=== PATIENT | female | born 1980 | race Two or more races ===

== ENCOUNTER 2023-07-25 09:20 | Emergency (ER) | payer OTHER, SELFPAY ==
[2023-07-25 09:28] VITALS: BP 130/92; PULSE 100; O2SAT 99
[2023-07-25 09:41] VITALS: BP 113/79; PULSE 81; RESP 20; TEMP 36.8; O2SAT 97; BMI 30.4
--- NOTE | 2023-07-25 09:49 | ED_ITS ---
HPI - Headache General Chief Complaint: Headache Stated Complaint: VILLAGOMEZ X2 DAYS PER EMS Time Seen by Provider: 07/25/23 09:21 Source: patient Mode of arrival: EMS Limitations: no limitations History of Present Illness HPI Narrative: Patient is a 43-year-old female who presents emergency department for evaluation of an intermittent left-sided headache. Has been ongoing for approximately 1 week it does alleviate with Tylenol but then comes back. Occurs sporadically throughout the day without obvious precipitating factors. Does not worsen with exertion. Is not described as the worst headache of her life. She has no associated dizziness, lightheadedness, vision changes, neck pain, neck stiffness, chest pain, shortness of breath, URI symptoms, numbness or tingling of the extremities, weakness, and denies any recent precipitating injury. She states she is currently staying at a assisted house, she arrived there 2 days ago, she has not been receiving her routine allergy medications, and she frequently asks for Tylenol but states she does not receive it. She endorses crack cocaine usage but has been sober for the past 2 months, denies any recreational drug or alcohol usage recently. Related Data Allergies Allergy/AdvReac Type Severity Reaction Status Date / Time Penicillins Allergy Unknown Verified 07/25/23 09:44 Review of Systems Review of Systems: Constitutional : No Fever, No Chills, No Fatigue ENT/Mouth : No sore throat, No Rhinorrhea Eyes: No Eye Pain, No Swelling, No Redness Cardiovascular : No Chest Pain, No SOB, No Dyspnea on Exertion Respiratory : No Cough, No Sputum Gastrointestinal : No Nausea, No Vomiting, No Diarrhea, No abdominal Pain Genitourinary : No Dysuria, No Urinary Frequency, No Hematuria, Musculoskeletal : No joint pain, No Myalgias, No Joint Swelling Skin : No Skin Lesions, No rash Neuro : No Weakness, No Numbness, No Dizziness, positive Headache Psych : No Anxiety/Panic, No Depression Heme/Lymph: No Bruising, No Bleeding,No Lymphadenopathy Endocrine : No Polyuria, No Polydipsia Yes all other systems are reviewed and are negative PMFSH Past Medical History Attestation statement: The following information was validated with the patient. 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 No acute distress.?Normal affect. Head: Normocephalic, atraumatic Eyes: Pupils equal, round and reactive to light. EOMI. No nystagmus. No tenderness to palpation over the temporal region. ENT: External auditory canal normal tympanic membrane pearly jeter and intact bilaterally. Oropharynx normal. Neck: Normal inspection.? Neck supple. CVS: Heart sounds normal. Normal heart rate and rhythm.? Pulses normal.?? Respiratory: No respiratory distress.? Lung sounds clear to auscultation bilaterally?? Abdomen: Soft and non-tender. Normoactive bowel sounds. ?? Skin: Skin warm and dry.? Normal skin color.? ?? Extremities: No lower extremity edema.? Neuro: Moves all extremities spontaneously. Sensation intact bilaterally. CN II- XII intact. No focal neuro deficits. Ambulatory with steady gait. Medications Administered Discontinued Medications Generic Name Dose Route Start Last Admin Trade Name Freq PRN Reason Stop Dose Admin Acetaminophen 975 mg 07/25/23 09:44 07/25/23 09:55 Acetaminophen 325 Mg Tablet PO 07/25/23 09:45 975 mg ONCE ONE Administration Diphenhydramine HCl 25 mg 07/25/23 09:45 07/25/23 10:08 Diphenhydramine Hcl 50 Mg/Ml Vial IVPUSH 07/25/23 09:46 25 mg ONCE ONE Administration Sodium Chloride 1,000 mls @ 999 mls/hr 07/25/23 09:45 07/25/23 10:09 Ns IV 07/25/23 10:45 999 mls/hr .Q1H1M ALYSSA Administration Metoclopramide HCl 10 mg 07/25/23 09:45 07/25/23 10:08 Metoclopramide Hcl 10 Mg/2 Ml Vial IVPUSH 07/25/23 09:46 10 mg ONCE ONE Administration Medical Decision Making Medical Decision Making [facility] Narrative: Patient is a 43-year-old female past medical history of allergic rhinitis presenting to the emergency department for evaluation of an intermittent headache. Differential diagnosis with presentation includes however is unlikely SDH, SAH, ICH, [employer] mass, meningitis, encephalitis, CVA, GCA, migraine, headache. She reports a history of similar headache in the past, there is no substantial change to typical headache pattern, it alleviates with Tylenol and returns there are no red flag symptoms, no focal neurological deficits, no high risk comorbidities. Treated today with 1 L normal saline IV fluid, Reglan and Benadryl IV in addition to oral acetaminophen with resolution of headache. COVID-19 and influenza testing are negative. at this time feel that patient is stable for discharge home Differential Diagnosis Differential Diagnoses: The differential diagnosis associated with the presentation includes (SDH, SAH, ICH, [employer] mass, meningitis, encephalitis, CVA, GCA, migraine, headache) Lab Data [facility] Lab Attestation statement: I reviewed the patient's lab results. (As noted above) Labs: Lab Results 07/25/23 Range/Units 10:04 COVID-19 (DARIEN) Negative (Negative) COVID-19 Clin Com See Note Influenza Type A (PHILL) Negative (Negative) Influenza Type B (PHILL) Negative (Negative) Influenza A & B Note See Note Independent Historian Clinical information obtained from an independent historian. History obtained from or confirmed by: EMS Prescription Management I considered prescription management with: Pain Medication (Acetaminophen/ibuprofen) Discharge Plan Discharge Clinical Impression: Headache Patient Disposition: Home, Self-Care Instructions: Acute Headache (ED) Additional Instructions: Testing today for COVID-19 and influenza are negative. You can take ibuprofen 200 mg, 3 tablets (600mg) every 6-8 hours as needed for pain, in addition to Tylenol 500 mg, 2 tablets (1,000mg) every 4-6 hours as needed for pain, but not to exceed 3 doses daily (3,000mg).? Referrals: Physician,None [Primary Care Provider] -
[2023-07-25] MEDS: Acetaminophen 325 MG TABLET 975 MG PO (09:55)
[2023-07-25] MEDS: Metoclopramide HCl 10 MG/2 ML VIAL IVPUSH (10:08)
[2023-07-25] MEDS: diphenhydrAMINE HCL 50 MG/ML VIAL 25 MG IVPUSH (10:08)
[2023-07-25] MEDS: 0.9 % Sodium Chloride 1,000 ML 999 ML IV (10:09)
[2023-07-25 10:12] VITALS: BP 128/79; PULSE 84; RESP 20; TEMP 36.8; O2SAT 94
[2023-07-25 10:25] LABS: COVID-19 Test Negative (Negative); IDNOW Serial# 08D9AD1C
[2023-07-25 10:28] LABS: IDNOW Serial# BCCEAD1C; Influenza A Negative (Negative); Influenza B2 Negative (Negative)
[2023-07-25 11:16] VITALS: BP 117/86; PULSE 85; RESP 19; TEMP 36.9; O2SAT 97
--- NOTE | 2023-07-25 11:17 | PC.NURSE ---
aox4. calm, coop. no neuro changes. headache improved per pt report
== END 2023-07-25 11:18 | disposition home or self-care (01) ==
PROVIDERS: Nurse Practitioner Family; Emergency Provider Emergency Medicine
DX: R51.9 Headache, unspecified (principal); J30.9 Allergic rhinitis, unspecified; Z11.52 Encounter for screening for COVID-19
CPT/HCPCS: 87502; 87635; 96361; 96374; 96375; 99284; 99285; J1200; J2765